=== PATIENT | male | born 1960 | race Two or more races ===

== ENCOUNTER 2016-11-13 20:47 | Emergency (ER) | payer MEDICAID ==
--- NOTE | 2016-11-13 21:16 | ED Physician Chart ---
Chief Complaint/HPI - Patient Information Date Seen:: 11/13/16 Time Seen:: 21:05 Chief Complaint:: R forearm itchiness/burning sensation for 2 days. History of Present Illness:: Pt witnessed a spider on his R forearm 2 days ago. Pt pushed it away but developed itchy/burning sensation in volar aspect of his R forearm. No fever. Taking po well without N/V/D. No dyspnea or lightheadedness. No other bodily pain or discomfort. Allergies:: PCN Vitals:: Vital Signs - 8 hr 11/13/16 20:47 Temp 97.5 F HR 68 RR 18 BP 130/90 O2 Sat % 97 Historian:: Patient Family MD/PCP:: Unknown. LMP:: N/A Review:: Nurse's Note Reviewed Review of Systems - Review of Systems General/Constitutional: No fever, No chills, No weight loss, No weakness, No diaphoresis, No edema, No loss of appetite Skin: No bruising, Other (redness and pruitis/burning sensation in R forearm, see HPI.) Head: No headache, No light-headedness ENT: No earache, No nasal drainage, No sore throat Neck: No neck pain, No swelling, No stiffness, No mass noted Cardio Vascular: No chest pain, No palpitations, No edema Pulmonary: No SOB, No wheezing GI: No nausea, No vomiting, No diarrhea, No pain G/U: No dysuria, No frequency, No hematuria Musculoskeletal: No bone or joint pain, No back pain, No muscle pain Endocrine: No polyuria, No polydipsia Psychiatric: No prior psych history Hematopoietic: No bruising, No lymphadenopathy Allergic/Immuno: No urticaria, No angioedema Neurological: No syncope, No focal symptoms, No weakness, No paresthesia, No headache, No dizziness, No confusion Past Medical History - Past Medical History Past Medical History: No significant medical hx Family History: None Social History: Non Smoker, No Alcohol, No Drug Use, Single, Other (lives with his friend.) Employment:: unemployed. Surgical History: None Psychiatricy History: None Medication: Reviewed Family Medical History - Family Member Mother History Unknown: Yes Physical Exam - Physical Examination General/Constitutional: Awake, Well-developed, well-nourished, Alert, No distress, GCS 15, Non-toxic appearing, Ambulatory Other Gen/Cons comments:: Breathes comfortably, speaks clearly, interacts normally, and ambulates without difficulty. Head: Atraumatic Eyes: Lids, conjuctiva normal, PERRL, EOMI Skin: No ecchymosis, Well hydrated, No lymphadenopathy Other Skin comments:: R forearm: There is an area approx. 2 x 2.5 cm of erythema with minimal edema at distal volar aspect. Few excoriation jones. No crepitus, red streakings, open wound or exudate. FROM of all joints. No detectable motor/sensory/vascular deficit. ENMT: External ears, nose nl, Nasal exam nl, Lips, teeth, gums nl, Oropharynx nl , Tonsils nl Neck: Nontender, Full ROM w/o pain, No nuchal rigidity, No mass, No stridor Respiratory: Nl effort/Exclusion, Clear to Auscultation, No Wheeze/Rhonchi/Rales Cardio Vascular: RRR, No murmur, gallop, rubs GI: No tenderness/rebounding/guarding, No organomegaly, Normal BS's, Nondistended Other GI comments:: Abdomen is soft. Other Extremities comments:: see also Skin exam. Neuro/Psych: Alert/oriented (oriented x 3), Judgement/insight normal, Mood normal, Normal gait, No focal deficits ED Septic Shock - . Is Septic Shock (SBP<90, OR Lactate>4 mmol\L) present?: No - <6hrs of presentation: Vital Signs: Vital Signs - 8 hr 11/13/16 20:47 Temp 97.5 F HR 68 RR 18 BP 130/90 O2 Sat % 97 Reassessment (Disposition) - Reassessment Reassessment:: 2230 Pt feels much better. R forearm redness and discomfort have subsided. Pt requests to go home now and does not want further observation/management in hospital. Aftercare instructions have been given. His friend Ann will drive him home. Reassessment Condition:: Improved - Diagnosis Diagnosis:: Probable spider bite with local allergic reaction, cannot r/o early cellulitis, stable and improved. - Aftercare/Follow up Instructions Aftercare/Follow-Up Instructions:: Refer to Discharge Instructions Notes:: Bedrest for now. Benadryl 50 mg po q6h as directed. Drowsiness precautions given with the use of Benadryl. May take Motrin 200 mg tab 3 tabs po q8h prn pain. Keep affected area clean and dry. Avoid scratching. F/U with Dr. Uriostegui or PCP of pt's choice in one day for recheck. Return to ER immediately if condition worsens or if any further questions/problems. Medication Prescribed:: Bactrim DS one tab po q12h for 10 days. D-20 R-0 - Patient Disposition Discharge/Transfer:: Home Time:: 22:35 Condition at Disposition:: Stable, Improved ED Discharge Plan - Patient Disposition Admit/Discharge/Transfer: PT DISCHARGED HOME Condition at Disposition: Improved Instructions: Cellulitis, Allergies, [id number] Additional Instructions: TAKE MEDICATION DIRECTED. OVER THE COUNTER BENADRYL 25MG EVERY 6HRS, AND OVER THE COUNTER MOTRIN 600MG NEEDED. KEEP WELL HYDRATED. TAKE CURRENT PRESCRIBED MEDICATION DIRECTED. FOLLOW UP WITH YOUR DOCTOR FOR RE-CHECK. RETURN TO ER IF CONDITION WORSEN.
[2016-11-13] MEDS ORDERED: Sulfamethoxazole/TMP 800/160mg Tab PO ONE (21:21)
[2016-11-13] MEDS ORDERED: Sulfamethoxazole/TMP 800/160mg Tab ONE (21:25)
== END 2016-11-13 22:45 | disposition home or self-care (01) ==
LOC: ER 20:47
DX: T63.301A Toxic effect of unspecified spider venom, accidental (unintentional), initial encounter (principal); Z88.0 Allergy status to penicillin
CPT/HCPCS: J1200; Z7502

== ENCOUNTER 2017-02-07 20:28 | Emergency (ER) | payer MEDICAID ==
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
[2017-02-07 20:54] LABS: % BASOPHILS 0.5 % (0.0-2.0); % EOSINOPHILS 4.3 % (0.0-5.0); % LYMPHOCYTES 28.8 % (20.0-50.0); % MONOCYTES 8.4 % (2.0-10.0); HEMATOCRIT 43.1 % (41.0-60); HEMOGLOBIN 14.6 gm/dL (12-16); MEAN CELL VOLUME 85.7 fl (80-99); MEAN CORPUSCULAR HGB CONC 33.8 pg (28.0-36.0); MEAN PLATELET VOLUME 7.9 fl; NEUTROPHILE ABSOLUTE 3.4 Th/cmm (1.8-8.0); PLATELET COUNT 246 Th/cmm (150-400); RED BLOOD COUNT 5.03 Mil/cmm (4.30-5.70); RED CELL DISTRIBUTION WIDTH 12.8 % (11.5-20.0); WHITE BLOOD COUNT 5.9 Th/cmm (4.8-10.8)
[2017-02-07] MEDS ORDERED: Levofloxacin 500mg/100mL 500 MG/100 ML BAG IV ONE ×2 (21:09→21:29)
[2017-02-07 21:11] LABS: ALB/GLOB RATIO 1.4 (1.0-1.8); ALKALINE PHOSPHATASE 79 U/L (34-104); ANION GAP 8.2 (7.0-16.0); BILIRUBIN,TOTAL 0.3 mg/dL (0.3-1.0); BUN - UREA NITROGEN 13 mg/dL (7-25); BUN/CREATININE RATIO 18.6; CALCIUM SERUM 9.2 mg/dL (8.6-10.3); CARBON DIOXIDE 26.4 mEq/L (21.0-31.0); CHLORIDE 102 mEq/L (98-107); CREATININE - SERUM 0.7 mg/dL (0.7-1.3); GLUCOSE 144 mg/dL (70-105); POTASSIUM SERUM 3.6 mEq/L (3.5-5.1); SGOT 17 U/L (13-39); SGPT/ALT 19 U/L (7-52); SODIUM SERUM 133 mEq/L (136-145)
[2017-02-07] MEDS ORDERED: Sodium Chloride 0.9% 1,000 ML IV ONE (21:36)
--- NOTE | 2017-02-08 07:12 | Diagnostic Imaging Report ---
Exam: Left third finger t HISTORY: Trauma Findings: Multiple views of left third finger reviewed. The study demonstrates degenerative osteopenic changes with narrowing of the distal interphalangeal joint space and osteophytic spurring. There is no evidence of fracture dislocation of soft tissue swelling. IMPRESSION: Degenerative changes distal interphalangeal joint space left finger .
== END 2017-02-07 23:50 | disposition home or self-care (01) ==
LOC: ER 20:28
DX: L03.012 Cellulitis of left finger (principal); E87.1 Hypo-osmolality and hyponatremia
CPT/HCPCS: 99291; 96365; 96375; 96368; 73140; 36415; 85025; 80053; 90715; J1885; J3370; J1956; J7030; Z7502